=== PATIENT | male | born 1995 | race Caucasian/White ===

== ENCOUNTER 2018-04-18 14:31 | Emergency (ER) | payer BC ==
--- NOTE | 2018-04-18 14:55 | EDPHY ---
HPI/HX/ROS/PE/MDM Narrative: CHIEF COMPLAINT: Chest Pain HPI: This patient is a heathy 23 year old male. He presents today with right-sided chest pain. Two months ago, he developed an intermittent ache in the right side of his chest which he felt was in his right lung. On Wednesday evening, he smoked several cigarettes, and the following morning, he woke with a recurrent more severe ache in his right chest. He ran 5 miles in the cold and did not have any increased symptoms. He cannot identify any obvious palliative or provocative factors and denies any changes with deep inspiration. His pain has persisted and keeps him up at night. He is concerned due to history of exposure to various chemical substances in the . 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 He had a negative cardiac workup including stress test upon his return to the [place]. He remains unsure as to the etiology of his symptoms at that time. He denies family history of CAD, clotting disorders. The patient denies fever, shortness of breath, weakness, dizziness, nausea, or other associated symptoms. REVIEW OF SYSTEMS: Aside from elements discussed in the HPI, a comprehensive 10-point review of systems was reviewed and is negative. PMH: Denies apart from "cardiac episode" noted in HPI. SOCIAL HISTORY: Student. Single. Lives in [place]. PHYSICAL EXAM: General:Patient is alert, in no acute distress. ENT:Eyes are normal to inspection. ENT inspection normal. Neck: Normal inspection. Full range of motion. Respiratory:No respiratory distress. Breath sounds normal bilaterally. Cardiovascular: Regular rate and rhythm. Strong peripheral pulses. Normal cap refill. Abdomen:The abdomen is nontender to palpation. There are no peritoneal signs. There are normal bowel sounds. Back: Normal to inspection. No tenderness to palpation. Skin: Normal color. No rash. Warm and dry. Extremities: Normal appearance. Full range of motion. Neuro: Oriented x3. Normal motor function. Normal sensory function. ED Course: 23 year old male presents with right-sided chest pain, ongoing for several months with acute exacerbation on Wednesday morning. Exam unremarkable. Plan for EKG, chest x-ray, labs including CBC, chemistries, troponin, d-dimer. EKG was ordered and interpreted by myself. Please see [employer] system for official reading. Sinus rhythm. Laboratory studies largely unremarkable. Troponin and d-dimer negative. Chest x-ray negative for acute processes. 16:04 Reassessed. Discussed imaging and laboratory results. Plan to discharge home in good condition. Follow up and return precautions discussed. Referral to cardiology provided. He is comfortable with this plan. MDM: This is a young healthy male with no cardiac risk factors who presents with atypical chest pain. There are multiple reassuring features, including the fact that the patient was able to go on a long strenuous run without difficulty or increase in pain. There are no signs of TAD, PE, ACS, PNA, PTX. - Data Points Imaging Results: Imaging Impressions Chest X-Ray 04/18/18 14:59 Impression: No acute findings in the chest. Imaging: I viewed and interpreted images myself Laboratory Results: Laboratory Results 04/18/18 15:15 04/18/18 15:15 04/18/18 04/18/18 04/18/18 15:16 15:15 15:15 WBC RBC Hgb Hct MCV MCH MCHC RDW Plt Count MPV Neut % (Auto) Lymph % (Auto) [place] % (Auto) Eos % (Auto) Baso % (Auto) Nucleat RBC Rel Count Absolute Neuts (auto) Absolute Lymphs (auto) Absolute Monos (auto) Absolute Eos (auto) Absolute Basos (auto) Absolute Nucleated RBC Immature Gran % Immature Gran # D-Dimer 0.31 ug/mLFEU ug/mLFEU (0.00-0.50) Sodium 140 mEq/L mEq/L (135-145) Potassium 4.3 mEq/L mEq/L (3.3-5.0) Chloride 103 mEq/L mEq/L (97-110) Carbon Dioxide 23 mEq/l mEq/l (22-31) Anion Gap 14 mEq/L mEq/L (6-14) BUN 8 mg/dL mg/dL (7-23) Creatinine 0.8 mg/dL mg/dL (0.7-1.3) Estimated GFR > 60 Glucose 85 mg/dL mg/dL (70-100) Calcium 10.2 mg/dL mg/dL (8.5-10.4) POC Troponin I 0.02 ng/mL ng/mL (0.00-0.08) 10/15/18 15:15 WBC 7.37 10^3/uL 10^3/uL (3.80-9.50) RBC 4.90 10^6/uL 10^6/uL (4.40-6.38) Hgb 14.8 g/dL g/dL (13.7-17.5) Hct 43.7 % % (40.0-51.0) MCV 89.2 fL fL (81.5-99.8) MCH 30.2 pg pg (27.9-34.1) MCHC 33.9 g/dL g/dL (32.4-36.7) RDW 12.0 % % (11.5-15.2) Plt Count 190 10^3/uL 10^3/uL (150-400) MPV 10.7 fL fL (8.7-11.7) Neut % (Auto) 62.8 % % (39.3-74.2) Lymph % (Auto) 28.8 % % (15.0-45.0) [place] % (Auto) 7.6 % % (4.5-13.0) Eos % (Auto) 0.0 % L % (0.6-7.6) Baso % (Auto) 0.5 % % (0.3-1.7) Nucleat RBC Rel Count 0.0 % % (0.0-0.2) Absolute Neuts (auto) 4.63 10^3/uL 10^3/uL (1.70-6.50) Absolute Lymphs (auto) 2.12 10^3/uL 10^3/uL (1.00-3.00) Absolute Monos (auto) 0.56 10^3/uL 10^3/uL (0.30-0.80) Absolute Eos (auto) 0.00 10^3/uL L 10^3/uL (0.03-0.40) Absolute Basos (auto) 0.04 10^3/uL 10^3/uL (0.02-0.10) Absolute Nucleated RBC 0.00 10^3/uL 10^3/uL (0-0.01) Immature Gran % 0.3 % % (0.0-1.1) Immature Gran # 0.02 10^3/uL 10^3/uL (0.00-0.10) D-Dimer Sodium Potassium Chloride Carbon Dioxide Anion Gap BUN Creatinine Estimated GFR Glucose Calcium POC Troponin I Point of Care Test Results: Chemistry 04/18/18 15:16 POC Troponin I 0.02 ng/mL ng/mL (0.00-0.08) General Time Seen by Provider: 04/18/18 14:53 Initial Vital Signs: Initial Vital Signs Temperature (C) 36.8 C 04/18/18 14:32 Heart Rate 84 04/18/18 14:32 Respiratory Rate 16 04/18/18 14:32 Blood Pressure 163/95 H 04/18/18 14:32 O2 Sat (%) 97 04/18/18 14:32 O2 Delivery Mode Room Air Allergies/Adverse Reactions: Penicillins Allergy (Intermediate, Verified 04/18/18 14:38) swells up Home Medications: Medication Instructions Recorded NK [No Known Home Meds] 04/18/18 Departure - Departure Disposition: Home, Routine, Self-Care Clinical Impression: Chest pain Condition: Good Instructions: Chest Pain (ED) Additional Instructions: Follow-up with your primary doctor within 2-3 days. Follow up with a end finder forming department for further testing, as soon as possible, within one week. We have referred you to our end finder forming department environmental scientists. Return to the Emergency Department for fever, chest pain, shortness of breath, increasing pain or other worsening of condition. Referrals: Yury Man MD [Medical Doctor] - As per Instructions Report Scribed for: Cl Gudino Report Scribed by: Nuzhat Cobb Date of Report: 04/18/18 Time of Report: 14:55 Physician Review and Approval Statement: Portions of this note were transcribed by an ED scribe. I personally performed the history, physical exam, and medical decision making; and confirm the accuracy of the information in the transcribed note.
[2018-04-18 15:25] LABS: PLATELET COUNT 190 10^3/uL (150-400)
[2018-04-18 16:18] VITALS: BP 135/85
--- NOTE | 2018-04-18 20:28 | CPEKG ---
Test Reason : OPEN Blood Pressure : / mmHG Vent. Rate : 071 BPM Atrial Rate : 072 BPM P-R Int : 158 ms QRS Dur : 094 ms QT Int : 387 ms P-R-T Axes : 065 073 051 degrees QTc Int : [address] elev, probable normal early repol pattern Confirmed by lC Gudino ([id number]) on 04/18/2018 8:27:50 PM Referred By: Confirmed By:Cl Gudino
== END 2018-04-18 16:18 | disposition home or self-care (01) ==
DX: R07.89 Other chest pain (principal); F17.200 Nicotine dependence, unspecified, uncomplicated
CPT/HCPCS: 84484-PO